=== PATIENT | female | born 1945 | race African-American/Black ===

== ENCOUNTER → 2016-08-12 | Outpatient (CLI) | payer OTHER, MEDICARE ==
--- NOTE | 2016-08-12 10:46 | KCIC ---
PROCEDURE CT abdomen and pelvis with contrast. HISTORY 15 pound weight loss in 6 months. Abdominal pain and ulcers. TECHNIQUE Axial images and coronal and sagittal re-formatted images are provided. Oral contrast and 89 milliliters of intravenous Omnipaque 300 was administered without complication. One or more of the following individualized dose reduction techniques were utilized for this exam: 1. Automated exposure control. 2. Adjustment of the mA and/or kV according to patient's size. 3. Use of iterative reconstruction technique. COMPARISON None. FINDINGS There is dependent atelectasis. There is no pleural effusion. The heart is not enlarged. Potential nodule in the left breast measuring 7 millimeters in size is noted, consider diagnostic mammogram. The liver, gallbladder, spleen, pancreas, and adrenals are unremarkable. The kidneys are symmetrically perfused. There is a 3 millimeter left renal calculus, nonobstructing. There is no obstructing calculus. Aorta is normal caliber. There is no small bowel obstruction or mural thickening. There is questionable gastric mural thickening which certainly could be related to incomplete distention and artifactual. There is no mural thickening in the colon, stool burden in the colon moderate. There are a few diverticula in the colon without findings of a diverticulitis. Appendix is not definitely visualized, no secondary findings of an appendicitis are apparent. Bladder is mildly distended and grossly unremarkable. Uterus is presumed surgically absent. There is no adnexal mass. There is grade 2 to grade 3 spondylolisthesis at L5-S1, bilateral L5 pars defects. IMPRESSION 1. Questionable mural thickening in the stomach versus incomplete distention, gastritis or infiltrating malignancy not excluded. Please correlate with any recent EGD results. 2. Nonobstructing left renal calculus. 3. A few diverticula in the colon without findings of diverticulitis. 4. Left breast nodule for which diagnostic mammogram would be suggested as the initial step in evaluation. Electronically signed by: Giancarlo Rudolph MD (Aug 12, 2016 10:44:09)
== END | disposition home or self-care (01) ==
LOC: KCIC CT 08:11
PROVIDERS: ATTEND Internal Medicine Gastroenterology
DX: R10.9 Unspecified abdominal pain (principal); R63.4 Abnormal weight loss; K25.9 Gastric ulcer, unspecified as acute or chronic, without hemorrhage or perforation; N20.0 Calculus of kidney; K57.30 Diverticulosis of large intestine without perforation or abscess without bleeding
CPT/HCPCS: 74177